=== PATIENT | female | born 1965 | race Caucasian/White ===

== ENCOUNTER 2017-06-10 10:01 | Outpatient (CLI) | payer OTHER | END 2017-06-10 10:06 | disposition home or self-care (01) | LOC: MAMO-SONO 10:01 | DX: Z12.31 Encounter for screening mammogram for malignant neoplasm of breast (principal); Z78.0 Asymptomatic menopausal state; Z78.9 Other specified health status; N95.1 Menopausal and female climacteric states; N60.19 Diffuse cystic mastopathy of unspecified breast; N64.4 Mastodynia; R92.2 Inconclusive mammogram ==

== ENCOUNTER 2017-06-10 10:28 | Outpatient (CLI) | payer OTHER | END 2017-06-10 10:38 | disposition home or self-care (01) | LOC: NUCLEAR 10:28 | DX: Z78.0 Asymptomatic menopausal state (principal); Z78.9 Other specified health status; N95.1 Menopausal and female climacteric states; Z12.31 Encounter for screening mammogram for malignant neoplasm of breast; N60.19 Diffuse cystic mastopathy of unspecified breast; N64.4 Mastodynia; R92.2 Inconclusive mammogram; N60.11 Diffuse cystic mastopathy of right breast; N60.12 Diffuse cystic mastopathy of left breast; E55.9 Vitamin D deficiency, unspecified ==

== ENCOUNTER 2017-07-22 15:12 | Outpatient (CLI) | payer OTHER | END 2017-07-22 15:21 | disposition home or self-care (01) | LOC: MAMO-SONO 15:12 | DX: N60.11 Diffuse cystic mastopathy of right breast (principal); N60.12 Diffuse cystic mastopathy of left breast ==

== ENCOUNTER → 2018-10-21 | Outpatient (CLI) | payer OTHER | END | disposition home or self-care (01) | LOC: MAMO-SONO 10-20 08:45 → SONOGRAMA 10-20 08:45 → MAMO-SONO 08:54 → SONOGRAMA 09:15 → MAMO-SONO 09:15 | DX: N64.4 Mastodynia (principal); R92.2 Inconclusive mammogram; N60.19 Diffuse cystic mastopathy of unspecified breast; Z12.31 Encounter for screening mammogram for malignant neoplasm of breast; N95.1 Menopausal and female climacteric states; Z78.9 Other specified health status; Z78.0 Asymptomatic menopausal state ==

== ENCOUNTER 2019-10-25 11:11 | Outpatient (CLI) | payer OTHER | END 2019-10-25 11:24 | disposition home or self-care (01) | LOC: MAMO-SONO 11:11 | PROVIDERS: ATTEND Obstetrics & Gynecology Gynecology | DX: Z12.31 Encounter for screening mammogram for malignant neoplasm of breast (principal); N60.19 Diffuse cystic mastopathy of unspecified breast; N64.4 Mastodynia; N63.0 Unspecified lump in unspecified breast; Z87.898 Personal history of other specified conditions ==

== ENCOUNTER 2019-10-25 12:34 | Outpatient (CLI) | payer OTHER | END 2019-10-25 12:48 | disposition home or self-care (01) | LOC: NUCLEAR 12:34 | PROVIDERS: ATTEND Obstetrics & Gynecology Gynecology | DX: M81.0 Age-related osteoporosis without current pathological fracture (principal); N95.1 Menopausal and female climacteric states; Z13.820 Encounter for screening for osteoporosis ==

== ENCOUNTER 2019-12-20 11:38 | Outpatient (CLI) | payer OTHER | END 2019-12-20 11:51 | disposition home or self-care (01) | LOC: SONOGRAMA 11:38 | PROVIDERS: ATTEND Obstetrics & Gynecology Gynecology | DX: E04.1 Nontoxic single thyroid nodule (principal) ==

== ENCOUNTER 2024-11-14 07:54 | Outpatient (CLI) | payer OTHER | END 2024-11-14 07:56 | disposition home or self-care (01) | LOC: RAD 07:54 | PROVIDERS: ATTEND Internal Medicine Rheumatology | DX: M19.90 Unspecified osteoarthritis, unspecified site (principal); M05.70 Rheumatoid arthritis with rheumatoid factor of unspecified site without organ or systems involvement ==